=== PATIENT | female | born 1945 | race Caucasian/White ===

== ENCOUNTER 2017-07-07 16:25 | Emergency (ER) | payer MEDICARE, OTHER ==
[2017-07-07] MEDS ORDERED: HYDROcodone/Acetaminophen 10/325 mg Tablet ONE (16:41)
[2017-07-07] MEDS ORDERED: Ondansetron ODT 4 MG TAB ONE (16:41)
[2017-07-07] MEDS ORDERED: Ibuprofen 800 MG TAB ONE (16:41)
--- NOTE | 2017-07-07 22:03 | RAD ---
RIGHT ANKLE THREE VIEWS 07/07/17 No prior films were available for comparison. Soft tissue swelling is seen laterally. A few flecks of bone are seen at the tip of the lateral malle olus suggesting tiny avulsions. The tibiotalar joint is narrowed but the articular surfaces are renay h. On one view, there was the suggestion of possible periosteal reaction along the distal tibial sha ft, but the other view showed none. There is dense ossification of the insertion of the Achilles tend on. IMPRESSION: 1. Lateral swelling with tiny cortical avulsions at the tip of the lateral malleolus. 2. Other chronic changes as noted. POS: HOME
== END 2017-07-07 17:34 | disposition home or self-care (01) ==
LOC: BURERS 16:25
DX: S93.401A Sprain of unspecified ligament of right ankle, initial encounter (principal); E78.5 Hyperlipidemia, unspecified; I10 Essential (primary) hypertension; Z79.899 Other long term (current) drug therapy; X50.1XXA Overexertion from prolonged static or awkward postures, initial encounter
CPT/HCPCS: Q0162